=== PATIENT | female | born 1985 | race Caucasian/White ===

== ENCOUNTER 2017-07-09 10:50 | Emergency (ER) | payer MEDICAID ==
[~2017-07-09] VITALS: Ht 152.4 cm; Wt 90.0 kg
[~2017-07-09 10:50] MED LIST: ALBU8.5H5 INH; AZIT250T94 PO; IBUP-1542 PO
[2017-07-09 10:54] VITALS: Ht 152.4 cm; Wt 90.0 kg
[2017-07-09] MEDS ORDERED: AMO500 PO (11:24)
[2017-07-09] MEDS ORDERED: IBUP-1542 PO (11:24)
--- NOTE | 2017-07-09 11:24 | ERD ---
ER Documentation Chief Complaint Date/Time DATE: 07/09/17 TIME: 11:21 Chief Complaint RIGHT EAR ACHE HPI This is a 31-year-old female who presents to the emergency room for evaluation of a headache, and right-sided ear pain. The patient states that she has had intermittent pain in her right ear on and off for the past month. She states that she was prescribed tetracycline and states that she came to the ER today for evaluation because she is having popping in her right ear. She is also complaining of pain in her lower back which is worse when she bends forward. Patient denies any new trauma to the area ROS All systems reviewed and are negative except as per history of present illness. Medications Home Meds Active Scripts Azithromycin* (Zithromax*) 250 Mg Tablet, 250 MG PO .ZPACK DIRECTED, #6 TAB TAKE 500 MG (2 TABS) THE FIRST DAY THEN 250 MG (1 TAB) DAYS 2-5 Prov:ROBBIE CABRERA PA-C 09/08/15 Ibuprofen* (Motrin*) 600 Mg Tab, 600 MG PO Q6H Y for PAIN AND OR ELEVATED TEMP, #30 Prov:DEX MCCARTNEY NP 05/06/15 Albuterol Sulfate* (Albuterol Sulfate* HFA) 8.5 Gm Hfa.aer.ad, 1-2 PUFF INH Q4 Y for SHORTNESS OF BREATH, #1 EA Prov:DEX MCCARTNEY NP 05/06/15 Reported Medications [None] No Conflict Check 09/04/10 Allergies Allergies: Coded Allergies: No Known Allergy (Verified , 09/05/10) PMhx/Soc History of Surgery: Yes (cholecystectomy) Anesthesia Reaction: No Hx Neurological Disorder: No Hx Respiratory Disorders: No Hx Cardiac Disorders: No Hx Psychiatric Problems: No Hx Miscellaneous Medical Probl: No Hx Alcohol Use: Yes (SOCIAL) Hx Substance Use: No Hx Tobacco Use: No Physical Exam Vitals Vital Signs Date Time Temp Pulse Resp B/P Pulse Ox O2 Delivery O2 Flow Rate FiO2 07/09/17 10:54 98.3 74 18 130/76 99 Physical Exam Const: No acute distress Head: Atraumatic Eyes: Normal Conjunctiva ENT: Erythematous right tympanic membrane, no mastoid bone tenderness, left tympanic membrane within normal limits normal External Ears, Nose and Mouth. Neck: Full range of motion..~ No meningismus. Resp: Clear to auscultation bilaterally Cardio: Regular rate and rhythm, no murmurs Abd: Soft, non tender, non distended. Normal bowel sounds Skin: No petechiae or rashes Back: No midline or flank tenderness Ext: No cyanosis, or edema Neur: Awake and alert Psych: Normal Mood and Affect Musculoskeletal; tender to palpation of the paraspinal muscles of the thoracic spine, no gross step-offs or deformity Procedures/MDM This 31-year-old presents to the ER for evaluation of right-sided ear pain and back pain. Her back pain is muscular in nature. There is no trauma. Her right ear exam did demonstrate an erythematous tympanic membrane. She will be given a prescription for amoxicillin, and Motrin for right otitis media and muscle strain. Departure Diagnosis: Primary Impression: Otitis media, right Additional Impression: Upper back pain Condition: Stable MONICA PAZ DO Jul 09, 2017 11:23
== END 2017-07-09 12:51 | disposition home or self-care (01) ==
LOC: FTE 10:50
DX: H66.91 Otitis media, unspecified, right ear (principal); M54.6 Pain in thoracic spine
CPT/HCPCS: 99283